=== PATIENT | female | born 1985 | race Caucasian/White ===

== ENCOUNTER 2022-12-02 15:47 | Emergency (ER) | payer OTHER, SELFPAY ==
[2022-12-02 16:42] LABS: Absolute Lymphocytes (CBC) 0.4 K/uL (0.7-4.9); Hematocrit 41.6 % (36.0-45.0); Lymphocytes % 4.9 % (15.3-44.8); MCV 90.9 fL (80-100); MPV 8.6 fL (7.6-11.3); RBC Red Blood Cell Count 4.57 M/uL (3.86-4.86)
[2022-12-02 16:45] LABS: Specific Gravity > 1.030 (1.005-1.030)
[2022-12-02 16:52] LABS: Specific Gravity > 1.030 (1.005-1.030); Urine Bacteria 20-50 /HPF (<20); Urine Bilirubin NEGATIVE (Negative); Urine Blood Negative (Negative); Urine Clarity Extremely Turbid (Clear); Urine Color Yellow (Yellow); Urine Glucose NEGATIVE (Negative); Urine Mucus 2+ /HPF (None Seen); Urine Protein 1+ (Negative); Urine Urobilinogen Normal (Normal); Urine pH 5.5 (5.0-7.0)
[2022-12-02] MEDS ORDERED: NA CHLORIDE 0.9% 1,000 ML ONE (16:55)
[2022-12-02] MEDS ORDERED: DICYCLOMINE HCL 20 MG/2 ML AMP IM ONE (16:55)
[2022-12-02] MEDS ORDERED: ONDANSETRON 4 MG/2 ML VIAL ONE (16:55)
[2022-12-02] MEDS ORDERED: FAMOTIDINE 20 MG/2 ML VIAL IV ONE (16:55)
[2022-12-02 16:59] LABS: Albumin 3.7 g/dL (3.4-5.0); Bilirubin Total 0.8 mg/dL (0.2-1.0); Potassium 3.7 mEq/L (3.5-5.1); Protein, Total 7.1 g/dL (6.4-8.2)
[2022-12-02] MEDS ORDERED: CEFTRIAXONE 1000 MG/VIAL ONE (17:38)
[2022-12-02] MEDS ORDERED: MORPHINE 4 MG/ML SYR ONE (17:38)
--- NOTE | 2022-12-02 18:16 | RAD REPORT ---
EXAM DESCRIPTION: CT - Abdomen Pelvis W Contrast - 12/02/2022 5:20 pm CLINICAL HISTORY: ABD PAIN COMPARISON: No comparisons TECHNIQUE: Thin cut axial CT imaging of the abdomen and pelvis was performed following intravenous a dministration of 95 mL Isovue 300. Multiplanar reformats were generated and reviewed. All CT scans are performed using dose optimization technique as appropriate and may include automated exposure control or mA/KV adjustment according to patient size. FINDINGS: No suspicious findings in the lung bases. Multiple fluid density lobulated lesions throughout the liver, the largest is bilobed present within the peripheral left liver lobe measuring 2.8 centimeter. The adrenal glands, spleen, and pancreas leatha w no suspicious findings. Cholesterol containing gallstone near the gallbladder neck. Symmetric renal function is seen with no hydronephrosis or suspicious renal mass. No dilated bowel loops or bowel wall thickening. No free air, or inflammatory stranding. Trace free f luid along bowel loops in the anterior right lower quadrant, nonspecific. No hernia, mass or bulky ly mphadenopathy. The urinary bladder is decompressed limiting evaluation No suspicious bony findings. IMPRESSION: Trace free fluid along bowel loops in the anterior right lower quadrant. This could rela te to mild enteritis or a recently ruptured right adnexal cyst/ follicle. The No other acute intra-abdominal process. Incidental findings as above.
--- NOTE | 2022-12-02 18:52 | ER ---
Nurse's Notes [facility] Name: Brielle Finley Age: 37 yrs Sex: Female : 1985 Arrival Date: 12/02/2022 Time: 15:47 Bed 13 Private MD: Diagnosis: Nausea with vomiting, unspecified;Diarrhea, unspecified;UTI/ Urinary tract infection, site not specified Presentation: 12/02 15:56 Chief complaint: Patient states: ABD and back pain that began this morning. States body vg1 aches and sweats and nausea. Coronavirus screen: Vaccine status: Patient reports being unvaccinated. Client denies travel out of the [place] in the last 14 days. Ebola Screen: Patient negative for fever greater than or equal to 101.5 degrees Fahrenheit, and additional compatible Ebola Virus Disease symptoms Patient denies exposure to infectious person. Patient denies travel to an Ebola-affected area in the 21 days before illness onset. Initial Sepsis Screen: Does the patient meet any 2 criteria? HR > 90 bpm. Does the patient have a suspected source of infection? No. Patient's initial sepsis screen is negative. Risk Assessment: Do you want to hurt yourself or someone else? Patient reports no desire to harm self or others. Onset of symptoms was December 02, 2022. 15:56 Method Of Arrival: Ambulatory vg1 15:56 Acuity: NATHALY 3 vg1 Triage Assessment: 15:58 General: Appears in no apparent distress. uncomfortable, Behavior is cooperative. Pain: vg1 Complains of pain in back and abdomen Pain currently is 7 out of 10 on a pain scale. Pain began this morning around 0800. GI: Reports diarrhea, nausea, vomiting. : No signs and/or symptoms were reported regarding the genitourinary system. 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 - Social history:: Smoking status: Patient denies any tobacco usage or history of. Screenin:[address] [facility] ED Fall Risk Assessment (Adult) History of falling in the last 3 months, sg5 including since admission No falls in past 3 months (0 pts). Abuse screen: Denies threats or abuse. Nutritional screening: No deficits noted. Tuberculosis screening: No symptoms or risk factors identified. Assessment: 16:31 General: Appears uncomfortable, Behavior is calm, cooperative, appropriate for age. sg5 Pain: Complains of pain in abdomen and back. Neuro: Level of Consciousness is awake, alert, obeys commands, Oriented to person, place, time, situation, Appropriate for age. Cardiovascular: Capillary refill < 3 seconds Patient's skin is warm and dry. Respiratory: Airway is patent Respiratory effort is even, unlabored. GI: Bowel sounds present X 4 quads. Abd is soft. : No signs and/or symptoms were reported regarding the genitourinary system. EENT: No signs and/or symptoms were reported regarding the EENT system. Derm: No signs and/or symptoms reported regarding the dermatologic system. Musculoskeletal: No signs and/or symptoms reported regarding the musculoskeletal system. Vital Signs: 15:56 BP 130 / 95; Pulse 100; Resp 16; Temp 98.5(O); Pulse Ox 100% on R/A; Weight 87.09 kg; vg1 Height 5 ft. 8 in. ; Pain 7/10; 17:25 BP 138 / 97; Pulse 80; Resp 18; Pulse Ox 100% on R/A; Pain 8/10; sg5 17:38 BP 126 / 83; Pulse 78; Resp 16; Pulse Ox 100% on R/A; Pain 3/10; sg5 18:22 BP 128 / 88; Pulse 79; Resp 16; Pulse Ox 100% on R/A; sg5 15:56 Body Mass Index 29.19 (87.09 kg, 172.72 cm) vg1 15:56 Pain Scale: Adult vg1 17:25 Pain Scale: Adult sg5 17:38 Pain Scale: Adult sg5 ED Course: 15:49 Patient arrived in ED. ts1 15:50 Sincere Lomax PA is PHCP. cp 15:50 Mingo Ballard MD is Attending Physician. cp 15:58 Triage completed. vg1 15:58 Arm band placed on. vg1 16:20 Tawana Blancas, RN is Primary Nurse. sg5 16:31 Patient has correct armband on for positive identification. Bed in low position. Call sg5 light in reach. Side rails up X 1. Adult w/ patient. Valuables Left with patient. 16:31 Inserted saline lock: 20 gauge in left antecubital area, using aseptic technique. Blood sg5 collected. 16:32 Test, Urine Sent. mm9 16:32 Urinalysis w/ reflexes Sent. mm9 16:32 Urine collected: clean catch specimen, cloudy. mm9 16:33 Warm blanket given. Client placed on continuous cardiac and pulse oximetry monitoring. mm9 NIBP monitoring applied. labor standards director on. Pulse ox on. NIBP on. 17:21 CT Abd/Pelvis - IV Contrast Only In Process Unspecified. EDMS 19:25 No provider procedures requiring assistance completed. IV discontinued, intact, vc1 bleeding controlled, No redness/swelling at site. Pressure dressing applied. Administered Medications: 16:55 Drug: NS 0.9% IV 1000 ml Route: IV; Rate: 1 bolus; Site: left antecubital; sg5 16:55 Drug: Famotidine IVP 20 mg Route: IVP; Site: left antecubital; sg5 16:55 Drug: Ondansetron IVP 4 mg Route: IVP; Site: left antecubital; sg5 16:56 Drug: Dicyclomine IM 20 mg Route: IM; Site: right gluteus; sg5 17:38 Drug: Rocephin IV 1 grams Route: IV; Rate: calculated rate; Site: left antecubital; sg5 17:38 Drug: morphine IVP or IV 4 mg Route: IVP; Infused Over: 4 mins; Site: left antecubital; sg5 Medication: 19:26 VIS not applicable for this client. vc1 Outcome: 18:51 Discharge ordered by MD. cp 19:25 Discharged to home via wheelchair, with significant other. vc1 19:25 Condition: good 19:25 Discharge instructions given to patient, Instructed on discharge instructions, follow up and referral plans. medication usage, Demonstrated understanding of instructions, follow-up care, medications, Prescriptions given X 3. 19:26 Patient left the ED. vc1 Signatures: Dispatcher [employer] EDKY Sincere Lomax PA PA cp Garcia, Victoria, RN RN vg1 Roxane Ramirez, RN RN vc1 Marlene Sanchez mm9 Tawana Blancas, RN RN sg5 Georgia Hancock, GIA PAS ts1
--- NOTE | 2022-12-02 18:52 | EDPHYS ---
Physician Documentation [facility] Name: Brielle Finley Age: 37 yrs Sex: Female : 1985 Arrival Date: 12/02/2022 Time: 15:47 Bed 13 Private MD: ED Physician Mingo Ballard HPI: 12/02 16:25 This 37 yrs old Female presents to ER via Ambulatory with complaints of Abdominal Pain, cp Back Pain. 16:25 The patient presents with abdominal pain in the lower abdomen. Onset: The cp symptoms/episode began/occurred this morning. Associated signs and symptoms: Pertinent positives: nausea and vomiting, diarrhea, mid and lower back pain, Pertinent negatives: fever. 16:25 Severity of pain: in the emergency department the pain is unchanged despite home cp interventions. 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 - Social history:: Smoking status: Patient denies any tobacco usage or history of. ROS: 16:30 Constitutional: Negative for body aches, chills, fever. cp 16:30 Abdomen/GI: Positive for abdominal pain, nausea and vomiting, diarrhea. cp 16:30 Eyes: Negative for injury, pain, redness, and discharge. cp 16:30 ENT: Negative for drainage from ear(s), ear pain, sore throat, difficulty swallowing, difficulty handling secretions. 16:30 Cardiovascular: Negative for chest pain. 16:30 Respiratory: Negative for cough, shortness of breath, wheezing. 16:30 Back: Positive for pain at rest, pain with movement. 16:30 Neuro: Negative for altered mental status, headache. 16:30 : Positive for burning with urination. cp 16:30 All other systems are negative. Exam: 16:35 Constitutional: The patient appears in no acute distress, alert, awake, non-toxic, well cp developed, well nourished, uncomfortable. 16:35 Head/Face: Normocephalic, atraumatic. cp 16:35 Eyes: Periorbital structures: appear normal, Conjunctiva: normal, no exudate, no injection, Sclera: no appreciated abnormality, Lids and lashes: appear normal, bilaterally. 16:35 ENT: External ear(s): are unremarkable, Nose: is normal, Mouth: Lips: moist, Oral mucosa: pink and intact, moist, Posterior pharynx: is normal, airway is patent, no erythema, no exudate. 16:35 Neck: ROM/movement: is normal, is supple, without pain, no range of motions limitations, no meningismus. 16:35 Chest/axilla: Inspection: normal. 16:35 Cardiovascular: Rate: tachycardic, Rhythm: regular. 16:35 Respiratory: the patient does not display signs of respiratory distress, Respirations: normal, no use of accessory muscles, no retractions, labored breathing, is not present, Breath sounds: are clear throughout, no decreased breath sounds, no stridor, no wheezing. 16:35 Abdomen/GI: Inspection: abdomen appears normal, Bowel sounds: active, all quadrants, Palpation: soft, in all quadrants, moderate abdominal tenderness, in all quadrants, rebound tenderness, is not appreciated, involuntary guarding, is not appreciated. 16:35 Back: pain, that is moderate, of the low back area and mid back area. 16:35 Neuro: Orientation: to person, place \T\ time. Mentation: is normal, Motor: moves all fours, strength is normal. Vital Signs: 15:56 BP 130 / 95; Pulse 100; Resp 16; Temp 98.5(O); Pulse Ox 100% on R/A; Weight 87.09 kg; vg1 Height 5 ft. 8 in. ; Pain 7/10; 17:25 BP 138 / 97; Pulse 80; Resp 18; Pulse Ox 100% on R/A; Pain 8/10; sg5 17:38 BP 126 / 83; Pulse 78; Resp 16; Pulse Ox 100% on R/A; Pain 3/10; sg5 18:22 BP 128 / 88; Pulse 79; Resp 16; Pulse Ox 100% on R/A; sg5 15:56 Body Mass Index 29.19 (87.09 kg, 172.72 cm) vg1 15:56 Pain Scale: Adult vg1 17:25 Pain Scale: Adult sg5 17:38 Pain Scale: Adult sg5 MDM: 16:03 Patient medically screened. 16:30 Differential diagnosis: appendicitis, cholecystitis, Cholelithiasis, gastritis, cp Pyelonephritis, Ureterolithiasis, urinary tract infection. 18:50 Data reviewed: vital signs, nurses notes, lab test result(s), radiologic studies, CT cp scan. 18:50 I considered the following discharge prescriptions or medication management in the emergency department Medications were administered in the Emergency Department. See MAR. Counseling: I had a detailed discussion with the patient and/or guardian regarding: the historical points, exam findings, and any diagnostic results supporting the discharge/admit diagnosis, lab results, radiology results, to return to the emergency department if symptoms worsen or persist or if there are any questions or concerns that arise at home. Response to treatment: the patient's symptoms have markedly improved after treatment, and as a result, I will discharge patient. Special discussion: Based on the patient's Hx, exam, and Dx evaluation, there is no indication for emergent surgery or inpatient Tx. It is understood by the patient/guardian that if the Sx's persist or worsen they need to return immediately for re-evaluation. 12/02 16:22 Order name: CBC with Diff; Complete Time: 17:04 12/02 17:05 Interpretation: Normal except: PAULINA% 90.2; LYM% 4.9; LYMA 0.4. 12/02 16:22 Order name: CMP; Complete Time: 17:04 12/02 16:22 Order name: Lipase; Complete Time: 17:04 12/02 16:22 Order name: Test, Urine; Complete Time: 17:04 18 16:22 Order name: Urinalysis w/ reflexes; Complete Time: 17:04 18 17:25 Interpretation: Normal except: [facility] Extremely Turbid; Urine SG > 1.030; UPROT 1+; UESTR cp 500; URBC 5-10; UBACT 20-50. 18 16:22 Order name: CT Abd/Pelvis - IV Contrast Only; Complete Time: 18:21 18 18:23 Interpretation: Report reviewed. 12/02 16:22 Order name: IV Saline Lock; Complete Time: 17:01 12/02 16:22 Order name: Labs collected and sent; Complete Time: 17:01 cp 12/02 18:23 Order name: PO challenge; Complete Time: 19:02 cp Administered Medications: 16:55 Drug: NS 0.9% IV 1000 ml Route: IV; Rate: 1 bolus; Site: left antecubital; sg5 16:55 Drug: Famotidine IVP 20 mg Route: IVP; Site: left antecubital; sg5 16:55 Drug: Ondansetron IVP 4 mg Route: IVP; Site: left antecubital; sg5 16:56 Drug: Dicyclomine IM 20 mg Route: IM; Site: right gluteus; sg5 17:38 Drug: Rocephin IV 1 grams Route: IV; Rate: calculated rate; Site: left antecubital; sg5 17:38 Drug: morphine IVP or IV 4 mg Route: IVP; Infused Over: 4 mins; Site: left antecubital; sg5 Disposition Summary: 12/02/22 18:51 Discharge Ordered Location: Home cp Problem: new cp Symptoms: have improved cp Condition: Stable cp Diagnosis - Nausea with vomiting, unspecified cp - Diarrhea, unspecified cp - UTI/ Urinary tract infection, site not specified cp Followup: cp - With: Private Physician - When: 2 - 3 days - Reason: Recheck today's complaints Discharge Instructions: - Discharge Summary Sheet cp - Diarrhea, Adult cp - Urinary Tract Infection, Adult cp - Vomiting, Adult cp Forms: - Medication Reconciliation Form cp - Thank You Letter cp - Antibiotic Education cp - Prescription Opioid Use cp Prescriptions: - Zofran 4 mg Oral Tablet - take 1 tablet by ORAL route every 12 hours As needed; 20 tablet; Refills: 0, cp Product Selection Permitted - cefpodoxime 100 mg Oral Tablet - take 1 tablet by ORAL route every 12 hours for 7 days take with food; 14 cp tablet; Refills: 0, Product Selection Permitted - dicyclomine 20 mg Oral Tablet - take 1 tablet by ORAL route 4 times per day; 20 tablet; Refills: 0, Product cp Selection Permitted Signatures: Dispatcher [employer] EDMS Sincere Lomax PA PA cp Garcia, Victoria RN RN vg1 Tawana Blancas RN RN sg5
[2022-12-02 19:39] VITALS: TEMP 98.5; O2SAT 100
[2022-12-02 19:45] VITALS: BP 128/88
== END 2022-12-02 19:26 | disposition home or self-care (01) ==
LOC: ER 15:47
DX: N39.0 Urinary tract infection, site not specified (principal); R19.7 Diarrhea, unspecified
CPT/HCPCS: 36415; 74177; 80053; 81001; 81025; 83690; 85025; 96372; 96374; 96375; 99285; J0500; J0696; J2405; J7030; Q9967

== ENCOUNTER 2023-04-11 16:00 | Observation (INO) | payer BC ==
--- OUTSIDE RECORDS SUMMARY | 2023-04-11 16:17 | XMS REPORT | Continuity of Care Document ---
:1985 Author Organization [facility] t Address [address] [place] [address] Care Team Providers Name Role Phone ELIZA LITTLE Primary Care Physician Unavailable Radiology Attending Clinician Unavailable RADIOLOGY Attending Clinician Unavailable Doctor Unassigned, [place] Attending Clinician Unavailable ELIZA LITTLE Admitting Clinician Unavailable Payers Payer Name Policy Type Policy Number Effective Date Expiration Date S ource Problems This patient has no known problems. Allergies, Adverse Reactions, Alerts Allergy Allergy Status Severity Reaction(s) Onset Inactive Treating Comm ents Source Name Type Date Date Clinician NO KNOWN Drug Active Univers ALLERGIE Class ity [facility] Social History Social Habit Start Date Stop Date Quantity Comments Source Gender identity [facility] Sexual orientation [facility] Sex Assigned At [birth year] [facility] 00:00:00 00:00:00 Medical Branch Smoking Status Start Date Stop Date Source Tobacco smoking consumption [facility] Medications This patient has no known medications. Procedures Procedure Date / Time Performing Clinician Source Performed US ABDOMEN LIMITED 2023-01-03 21:15:32 Eliza Little [facility] AUTHORIZATION FOR 2020-10-12 05:01:00 Doctor Unassigned, No [facility] RELEASE OF PHI Name Medical Branch Encounters Start End Encounter Admission Attending Care Care Encounter Source Date/Time Date/Time Type Type Clinicians Facility Department ID 2023-01-03 2023-01-03 Hospital Radiology [facility] [id number] Univers 15:30:00 23:59:00 Encounter SPECIALTY [id number] ity of [facility] [id number] [facility] AT [id number] Ut prabhakar GUTIERREZ [address] [facility] 2023-01-03 2023-01-03 Outpatient R RADIOLOGY [facility] [id number] Univers 15:30:00 23:59:00 ity of [facility] 2020-10-12 2020-10-12 Orders Doctor KEVIN [id number] Univers 00:00:00 00:00:00 Only Unassigned, PAPITO [id number] ity of [place] [facility] [id number] [facility] [phone] [place] [id number] Branch Results This patient has no known results.
[2023-04-11] MEDS ORDERED: ASPIRIN 81 MG CHEWABLE TABLET ONE (16:50)
[2023-04-11] MEDS ORDERED: NA CHLORIDE 0.9% 500 ML ONE (16:50)
--- NOTE | 2023-04-11 17:03 | RAD REPORT ---
EXAM DESCRIPTION: Rena Single View04/11/2023 4:30 pm CLINICAL HISTORY: Chest pain COMPARISON: April 09, 2023 FINDINGS: The lungs appear clear of acute infiltrate. The heart is normal size IMPRESSION: No acute abnormalities displayed
[2023-04-11 17:06] LABS: Absolute Lymphocytes (CBC) 2.2 K/uL (0.7-4.9); Hematocrit 37.3 % (36.0-45.0); Lymphocytes % 34.1 % (15.3-44.8); MCV 90.8 fL (80-100); MPV 8.8 fL (7.6-11.3); Platelets 204 thou/uL (152-406)
[2023-04-11 17:10] LABS: Protime INR 0.95
--- NOTE | 2023-04-11 17:24 | ER ---
Nurse's Notes [facility] Name: Brielle Finley Age: 37 yrs Sex: Female : 1985 Arrival Date: 04/11/2023 Time: 16:00 Bed 13 Private MD: Diagnosis: Chest pain, unspecified;Essential (primary) hypertension;Palpitations;Dyspnea;UTI/ Urinary tract infection, site not specified Presentation: 04/11 16:06 Chief complaint: Patient states: Mid-sternal sharp chest pain, worse w/ deep breathing ph or cough, tingling to L arm and "kidney pain," Chest pain worse w/ palpation, has seen PCP who sent her for [facility] x[facility], no results currently. Coronavirus screen: Vaccine status: Patient reports being unvaccinated. Ebola Screen: No symptoms or risks identified at this time. Initial Sepsis Screen: Does the patient meet any 2 criteria? No. Patient's initial sepsis screen is negative. Does the patient have a suspected source of infection? No. Patient's initial sepsis screen is negative. Risk Assessment: Do you want to hurt yourself or someone else? Patient reports no desire to harm self or others. Onset of symptoms was April 11, 2023. 16:06 Method Of Arrival: Ambulatory ph 16:06 Acuity: NATHALY 3 ph Historical: - Home Meds: 16:10 Ambien Oral [Active]; Vyvanse oral [Active]; ph - PMHx: 16:10 ADD; ph - PSHx: 16:10 breast augmentation; section; Tummy tuck; ph - Immunization history:: Adult Immunizations unknown. - Social history:: Smoking status: Patient denies any tobacco usage or history of. Screenin:00 [facility] ED Fall Risk Assessment (Adult) History of falling in the last 3 months, ha1 including since admission No falls in past 3 months (0 pts) Confusion or Disorientation No (0 pts) Intoxicated or Sedated No (0 pts) Impaired Gait No (0 pts) Mobility Assist Device Used No (0 pt) Altered Elimination No (0 pt) Score/Fall Risk Level 0 - 2 = Low Risk Oriented to surroundings, Maintained a safe environment, Educated pt \\T\\ family on fall prevention, incl call for assistance when getting out of bed. Abuse screen: Denies threats or abuse. Denies injuries from another. Nutritional screening: No deficits noted. Tuberculosis screening: No symptoms or risk factors identified. Assessment: 19:25 General: Appears comfortable, Behavior is calm, cooperative. Pain: Denies pain. Neuro: ha1 Level of Consciousness is awake, alert, obeys commands, Oriented to person, place, time, situation. Cardiovascular: Reports palpitations, Denies chest pain, Heart tones S1 S2 present Capillary refill < 3 seconds Patient's skin is warm and dry. Respiratory: Airway is patent Respiratory effort is even, unlabored, Respiratory pattern is regular, symmetrical. 20:25 Reassessment: Patient and/or family updated on plan of care and expected duration. Pain ha1 level reassessed. Patient is alert, oriented x 3, equal unlabored respirations, skin warm/dry/pink. 21:25 Reassessment: Patient and/or family updated on plan of care and expected duration. Pain ha1 level reassessed. Patient is alert, oriented x 3, equal unlabored respirations, skin warm/dry/pink. Vital Signs: 16:06 Pulse 77; Resp 16; Temp 98.2; Pulse Ox 98% on R/A; Weight 83.91 kg; Height 5 ft. 8 in. ;ph 16:11 BP 140 / 107; ph 19:30 BP 142 / 102; Pulse 74; Resp 18 S; Pulse Ox 99% on R/A; ha1 20:30 BP 140 / 101; Pulse 70; Resp 17 S; Pulse Ox 99% on R/A; ha1 23:00 BP 119 / 88; Pulse 78; Resp 17 S; Pulse Ox 98% on R/A; ha1 16:06 Body Mass Index 28.13 (83.91 kg, 172.72 cm) ph ED Course: 16:01 Patient arrived in ED. rg4 16:09 Sincere Johnson MD is Attending Physician. tatiana 16:10 Triage completed. ph 16:11 Arm band placed on. EKG completed in triage. Results shown to . ph 16:30 Dinora Angulo, MARY CARMEN is Primary Nurse. eh3 16:32 XRAY Chest (1 view) In Process Unspecified. EDMS 17:23 Jonatan Farah MD is Hospitalizing Provider. tatiana 17:59 CT Aorta for Dissection In Process Unspecified. EDMS 19:00 Patient has correct armband on for positive identification. Placed in gown. Bed in low ha1 position. Call light in reach. Side rails up X 1. 19:00 Client placed on continuous cardiac and pulse oximetry monitoring. NIBP monitoring ha1 applied. 19:00 Inserted saline lock: 22 gauge in left antecubital area, using aseptic technique. ha1 inserted by MARY CARMEN Farias. 20:30 Inserted saline lock: 22 gauge in left hand, using aseptic technique. ha1 04/12 00:10 No provider procedures requiring assistance completed. Patient admitted, IV remains in ha1 place. Patient maintains SpO2 saturation greater than 95% on room air. 00:11 Provided Education on: need for admit . ha1 Administered Medications: 04/11 16:35 Drug: Aspirin PO Chewable Tablet 162 mg PO once Route: PO; 3 17:30 Follow up: Response: No adverse reaction 3 16:45 Drug: NS 0.9% IV 500 ml IV at bolus once Route: IV; Rate: bolus; Site: left antecubital;3 18:25 Drug: Lisinopril PO 10 mg PO once Route: PO; 3 18:25 Drug: Metoprolol IVP 5 mg IVP once; Hold for SBP <100 or HR <60. Route: IVP; Site: left eh3 antecubital; 18:25 Drug: Metoprolol PO 50 mg PO once Route: PO; 3 18:25 Drug: Enoxaparin Sub-Q 1 mg/kg Sub-Q once Route: Sub-Q; Site: abdomen; 3 19:28 Follow up: Response: No adverse reaction [facility] 20:00 Drug: Rocephin IV 1 grams IV at per protocol once; Given slow IV push per pharmacy ha1 instructions Route: IV; Rate: per protocol; Site: left antecubital; 20:30 Follow up: Response: No adverse reaction; IV Status: Completed infusion; IV Intake: [id number] Medication: 21:35 VIS not applicable for this client. ha1 Intake: 20:30 IV: 50ml; Total: 50ml. ha1 Outcome: 17:23 Decision to Hospitalize by Provider. tatiana 23:45 Admitted to Med/surg accompanied by tech, via stretcher, room 220, with chart, Report ha1 called to MARY CARMEN Gilliam 23:45 Condition: stable 23:45 Discharge instructions given to patient, Instructed on the need for admit, Demonstrated understanding of instructions, 04/12 00:12 Patient left the ED. ha1 Signatures: Dispatcher [employer] EDSincere Vizcaino MD MD cha Hall, Patricia, RN RN Tushar, Soha 4 Dinora Angulo RN RN 3 Martha Rosen RN RN 1 Corrections: (The following items were deleted from the chart) 04/11 18:37 18:00 Enoxaparin Sub-Q 83.91 mg Sub-Q in abdomen 3 3
--- NOTE | 2023-04-11 17:24 | EDPHYS ---
Physician Documentation [facility] Name: Brielle Finley Age: 37 yrs Sex: Female : 1985 Arrival Date: 04/11/2023 Time: 16:00 Bed 13 Private MD: ED Physician Sincere Johnson HPI: 04/11 17:15 This 37 yrs old Female presents to ER via Ambulatory with complaints of Chest tatiana Pain, Numbness Of Arm, Palpitations. 17:15 The patient or guardian reports chest pain that is located primarily in the substernal tatiana area. The pain radiates to the left arm, Associated signs and symptoms: Pertinent positives: cough, shortness of breath. Historical: - Home Meds: 16:10 Ambien Oral [Active]; Vyvanse oral [Active]; ph - PMHx: 16:10 ADD; ph - PSHx: 16:10 breast augmentation; section; Tummy tuck; ph - Immunization history:: Adult Immunizations unknown. - Social history:: Smoking status: Patient denies any tobacco usage or history of. ROS: 17:17 Constitutional: Negative for fever, chills, and weight loss, Eyes: Negative for injury, tatiana pain, redness, and discharge, ENT: Negative for injury, pain, and discharge, Neck: Negative for injury, pain, and swelling, Abdomen/GI: Negative for abdominal pain, nausea, vomiting, diarrhea, and constipation, Back: Negative for injury and pain, : Negative for injury, bleeding, discharge, and swelling, MS/Extremity: Negative for injury and deformity, Skin: Negative for injury, rash, and discoloration, Neuro: Negative for headache, weakness, numbness, tingling, and seizure, Psych: Negative for depression, anxiety, suicide ideation, homicidal ideation, and hallucinations, Allergy/Immunology: Negative for hives, rash, and allergies, Endocrine: Negative for neck swelling, polydipsia, polyuria, polyphagia, and marked weight changes, 17:17 Cardiovascular: Positive for chest pain, of the chest, 17:17 Respiratory: Positive for shortness of breath, Exam: 17:17 Constitutional: This is a well developed, well nourished patient who is awake, alert, tatiana and in no acute distress. Head/Face: Normocephalic, atraumatic. Eyes: Pupils equal round and reactive to light, extra-ocular motions intact. Lids and lashes normal. Conjunctiva and sclera are non-icteric and not injected. Cornea within normal limits. Periorbital areas with no swelling, redness, or edema. ENT: Nares patent. No nasal discharge, no septal abnormalities noted. Tympanic membranes are normal and external auditory canals are clear. Oropharynx with no redness, swelling, or masses, exudates, or evidence of obstruction, uvula midline. Mucous membranes moist. Neck: Trachea midline, no thyromegaly or masses palpated, and no cervical lymphadenopathy. Supple, full range of motion without nuchal rigidity, or vertebral point tenderness. No Meningismus. Cardiovascular: Regular rate and rhythm with a normal S1 and S2. No gallops, murmurs, or rubs. Normal PMI, no JVD. No pulse deficits. Respiratory: Lungs have equal breath sounds bilaterally, clear to auscultation and percussion. No rales, rhonchi or wheezes noted. No increased work of breathing, no retractions or nasal flaring. Abdomen/GI: Soft, non-tender, with normal bowel sounds. No distension or tympany. No guarding or rebound. No evidence of tenderness throughout. Back: No spinal tenderness. No costovertebral tenderness. Full range of motion. Female : Normal external genitalia. Skin: Warm, dry with normal turgor. Normal color with no rashes, no lesions, and no evidence of cellulitis. MS/ Extremity: Pulses equal, no cyanosis. Neurovascular intact. Full, normal range of motion. Neuro: Awake and alert, GCS 15, oriented to person, place, time, and situation. Cranial nerves II-XII grossly intact. Motor strength 5/5 in all extremities. Sensory grossly intact. Cerebellar exam normal. Normal gait. Psych: Awake, alert, with orientation to person, place and time. Behavior, mood, and affect are within normal limits. 17:17 Chest/axilla: Inspection: normal, Palpation: tenderness, that is mild, of the right clavicle, left clavicle, anterior aspect of right upper chest, anterior aspect of left upper chest and mid-sternal area, Axilla: are normal, Breasts: are normal, symmetrical shape, 17:17 Cardiovascular: Rate: normal, actual rate is 77 bpm, Rhythm: regular, Pulses: Pulses are 4+ in bilateral radial, brachial, femoral, popliteal, posterior tibial and and dorsalis pedis arteries.. Heart sounds: normal, Edema: is not appreciated, JVD: is not appreciated, 17:17 ECG was reviewed by the Attending Physician. 17:17 Musculoskeletal/extremity: DVT Exam: No signs of deep vein thrombosis. no pain, no swelling, no tenderness, negative Homans' sign noted on exam, no appreciated bluish discoloration, no erythema, no increased warmth, Vital Signs: 16:06 Pulse 77; Resp 16; Temp 98.2; Pulse Ox 98% on R/A; Weight 83.91 kg; Height 5 ft. 8 in. ;ph 16:11 BP 140 / 107; ph 19:30 BP 142 / 102; Pulse 74; Resp 18 S; Pulse Ox 99% on R/A; ha1 20:30 BP 140 / 101; Pulse 70; Resp 17 S; Pulse Ox 99% on R/A; ha1 23:00 BP 119 / 88; Pulse 78; Resp 17 S; Pulse Ox 98% on R/A; ha1 16:06 Body Mass Index 28.13 (83.91 kg, 172.72 cm) ph MDM: 16:09 Patient medically screened. tatiana 17:20 Differential diagnosis: abnormal EKG, acute myocardial infarction, acute pericarditis, tatiana anxiety, coronary artery disease chest wall pain, Cholelithiasis costochondritis, herpes zoster, hiatal hernia, pancreatitis, peptic ulcer disease, pericarditis, pulmonary embolus, stable angina, thoracic aortic disection, unstable angina. HEART Score: History: Moderately Suspicious (1), ECG: Non specific repolarization disturbance / LBTB / PM (1), Age: < or = 45 years (0), Risk Factors: 1 or 2 risk factors (1), [+ Family HX] [Obesity] Troponin: < or = 1 x Normal Limit (0). ANDRE Risk Score: TOTAL SCORE = 0. Data reviewed: vital signs, nurses notes, lab test result(s), EKG, radiologic studies, CT scan, plain films. Consideration of Admission/Observation Patient was admitted/placed on observation. Escalation of care including admission/observation considered. I considered the following discharge prescriptions or medication management in the emergency department Medications were administered in the Emergency Department. See MAR. Independent interpretation of the following test(s) in the Emergency Department EKG: See my EKG interpretation above. Test considered but Not performed: EKG: NO ABD USG. Historians other than the Patient: Family Member: MOM. Care significantly affected by the following chronic conditions: Obesity, ADD,ADHD. 04/11 16:10 Order name: Basic Metabolic Panel; Complete Time: 18:02 [facility] 04/11 16:10 Order name: CBC with Diff; Complete Time: 17:22 04/11 16:10 Order name: LFT's; Complete Time: 18:02 [facility] 04/11 16:10 Order name: Magnesium; Complete Time: 18:02 [facility] 04/11 16:10 Order name: NT PRO-BNP; Complete Time: 18:02 [facility] 04/11 16:10 Order name: PT-INR; Complete Time: 17:22 04/11 16:10 Order name: Troponin HS; Complete Time: 18:02 [facility] 04/11 16:10 Order name: Lipase; Complete Time: 18:02 [facility] 04/11 16:10 Order name: TSH; Complete Time: 18:02 [facility] 04/11 16:10 Order name: Urinalysis w/ reflexes; Complete Time: 19:21 [facility] 04/11 16:10 Order name: PREGU; Complete Time: 19:21 [facility] 04/11 16:11 Order name: UDS; Complete Time: 19:21 [facility] 04/11 17:16 Order name: Flu [facility] 04/11 19:23 Order name: Urine Culture [facility] 04/11 19:54 Order name: Lipid Profile [facility] 04/11 19:54 Order name: Lipid Profile [facility] 04/11 19:55 Order name: Troponin High Sensitivity [facility] 04/11 19:55 Order name: Troponin High Sensitivity [facility] 04/11 19:55 Order name: Troponin High Sensitivity [facility] 04/11 19:55 Order name: Troponin High Sensitivity [facility] 04/11 20:11 Order name: SARS-COV-2 RT PCR [facility] 04/11 16:10 Order name: XRAY Chest (1 view); Complete Time: 17:08 04/11 17:15 Order name: CT Aorta for Dissection; Complete Time: 19:21 04/11 16:10 Order name: EKG; Complete Time: 16:11 04/11 16:10 Order name: Cardiac monitoring; Complete Time: 16:52 04/11 16:10 Order name: EKG - Nurse/Tech; Complete Time: 16:52 [facility] 04/11 16:10 Order name: IV Saline Lock; Complete Time: 16:52 [facility] 04/11 16:10 Order name: Labs collected and sent; Complete Time: 16:53 [facility] 04/11 16:10 Order name: O2 Per Protocol; Complete Time: 16:53 [facility] 04/11 16:10 Order name: O2 Sat Monitoring; Complete Time: 16:53 [facility] EC:17 Rate is 83 beats/min. Rhythm is regular. QRS [place] is Normal. [place] interval is normal. QRS tatiana interval is normal. QT interval is normal. No Q waves. T waves are Normal. No ST changes noted. Clinical impression: NSR w/ Non-specific ST/T Changes and No evidence of ischemia. Interpreted by me. Reviewed by me. Administered Medications: 16:35 Drug: Aspirin PO Chewable Tablet 162 mg PO once Route: PO; 3 17:30 Follow up: Response: No adverse reaction 3 16:45 Drug: NS 0.9% IV 500 ml IV at bolus once Route: IV; Rate: bolus; Site: left antecubital;3 18:25 Drug: Lisinopril PO 10 mg PO once Route: PO; 3 18:25 Drug: Metoprolol IVP 5 mg IVP once; Hold for SBP <100 or HR <60. Route: IVP; Site: left 3 antecubital; 18:25 Drug: Metoprolol PO 50 mg PO once Route: PO; 3 18:25 Drug: Enoxaparin Sub-Q 1 mg/kg Sub-Q once Route: Sub-Q; Site: abdomen; 3 19:28 Follow up: Response: No adverse reaction 3 20:00 Drug: Rocephin IV 1 grams IV at per protocol once; Given slow IV push per pharmacy ha1 instructions Route: IV; Rate: per protocol; Site: left antecubital; 20:30 Follow up: Response: No adverse reaction; IV Status: Completed infusion; IV Intake: [id number] Disposition Summary: 04/11/23 17:23 Hospitalization Ordered Notes: Hospitalization Status: Observation tatiana Provider: Jonatan Farah cha Condition: Stable tatiana Problem: new tatiana Symptoms: have improved tatiana Bed/Room Type: Standard tatiana Location: Telemetry/MedSurg (observation)(04/11/23 23:13) cg Room Assignment: 220(04/11/23 23:13) cg Diagnosis - Chest pain, unspecified tatiana - Essential (primary) hypertension tatiana - Palpitations tatiana - Dyspnea tatiana - UTI/ Urinary tract infection, site not specified tatiana Forms: - Medication Reconciliation Form tatiana - SBAR form tatiana - Leadership Thank You Letter tatiana Signatures: Dispatcher [employer] EDSincere Vizcaino MD MD cha Hall, Patricia, RN RN Vilma Finley RN RN Dinora Angulo RN RN 3 Martha Rosen RN RN ha1 Corrections: (The following items were deleted from the chart) 19:59 17:23 Telemetry/MedSurg (observation) tatiana cg 19:59 17:23 tatiana cg 20:10 17:16 SARS-COV-2 Antigen Rapid+I.LAB.BRZ ordered. EDMS EDMS 23:13 19:59 [facility] ER HOLD cg cg 23:13 19:59 ERHOLD- cg cg
[2023-04-11 17:30] LABS: Albumin 3.8 g/dL (3.4-5.0); Bilirubin Direct 0.1 mg/dL (0-0.2); Bilirubin Indirect, Calculated 0.2 mg/dL (0.2-0.8); Bilirubin Total 0.3 mg/dL (0.2-1.0); Magnesium 2.4 mg/dL (1.6-2.4); Potassium 3.6 mEq/L (3.5-5.1); Protein, Total 7.3 g/dL (6.4-8.2); Thyroid Stimulating Hormone 1.01 uIU/mL (0.358-3.740); Troponin High Sensitivity 3.8 pg/mL (<58.9)
[2023-04-11] MEDS ORDERED: lisinopriL 10 MG TAB ONE (18:04)
[2023-04-11] MEDS ORDERED: METOPROLOL TAR 50 MG TAB ONE (18:04)
[2023-04-11] MEDS ORDERED: ENOXAPARIN 80 MG/0.8 ML SQ ONE (18:05)
[2023-04-11] MEDS ORDERED: METOPROLOL TARTRATE 5 MG/5 ML INJ IV ONE (18:05)
--- NOTE | 2023-04-11 18:14 | RAD REPORT ---
EXAM DESCRIPTION: CT - Angio Aorta For Dissection - 04/11/2023 5:58 pm CLINICAL HISTORY: . Chest and abd pain COMPARISON: November 2022 CT abdomen TECHNIQUE: Computed tomography angiography of the chest, abdomen pelvis were obtained. 150 cc Isovue 370 was administered intravenously. Coronal and sagittal reconstruction were performed. MIP 3D reconstruction was performed All CT scans are performed using dose optimization technique as appropriate and may include automated exposure control or mA/KV adjustment according to patient size. FINDINGS: An aortic dissection is not seen. An aortic aneurysm is not displayed. The celiac, SMA and MELLISSA are patent . A lung consolidation is not present. A pericardial effusion is not seen. A pleural effusion is not no gwendolyn. Hepatic cysts. Spleen, pancreas,adrenals and kidneys demonstrate no significant abnormality. 3.3 centimeter lobulated cystic mass left upper quadrant abuts diaphragm. It is without significant c hange. There no evidence diverticulitis. Cholelithiasis. No gallbladder wall thickening IMPRESSION: Negative for an aortic dissection. Cholelithiasis without evidence of cholecystitis 3.3 centimeter lobulated cystic mass left upper quadrant probably benign. Follow-up ultrasound in 3 m onths recommended to assess stability
[2023-04-11 18:37] LABS: Methadone ND (NEGATIVE)
[2023-04-11 18:43] LABS: Specific Gravity 1.021 (1.005-1.030)
[2023-04-11 18:45] LABS: Specific Gravity 1.021 (1.005-1.030); Urine Bacteria <20 /HPF (<20); Urine Bilirubin NEGATIVE (Negative); Urine Blood Trace (Negative); Urine Clarity Extremely Turbid (Clear); Urine Color Light-Yellow (Yellow); Urine Crystals Unidentified Few /HPF (None Seen); Urine Glucose NEGATIVE (Negative); Urine Mucus Slight /HPF (None Seen); Urine Protein NEGATIVE (Negative); Urine Urobilinogen Normal (Normal)
[2023-04-11 18:48] LABS: Barbiturates NEGATIVE (NEGATIVE); Benzodiazepines NEGATIVE (NEGATIVE); Cocaine NEGATIVE (NEGATIVE); METHAMPHETAM POSITIVE (NEGATIVE); Opiates NEGATIVE (NEGATIVE); Phencyclidine NEGATIVE (NEGATIVE); THC Cannibis NEGATIVE (NEGATIVE)
[2023-04-11] MEDS ORDERED: ACETAMINOPHEN 325 MG TABLET PO PRN (19:49)
[2023-04-11] MEDS ORDERED: ONDANSETRON 4 MG/2 ML VIAL IV PRN (19:49)
--- NOTE | 2023-04-11 19:50 | P.HP ---
Certification for Inpatient Patient admitted to: Observation With expected LOS: <2 Midnights Practitioner: I am a practitioner with admitting privileges, knowledge of patient current condition, hospital course, and medical plan of care. Services: Services provided to patient in accordance with Admission requirements found in Title 42 Section 412.3 of the Code of Federal Regulations Patient History Date of Service: 04/12/23 Reason for admission: Chest pain. History of Present Illness: 37-year-old female patient who has no significant medical history was evaluated for episode of chest pain. She reported chest pain that started couple of days ago but got worse in the last day. As per patient she had chest discomfort rated 2 out of 10 in intensity however this radiated into the left shoulder and down the left arm with some numbness prompting significant concerns. She has had to come to the ED because of these worrisome things and in the ED she had a UDS that was positive for amphetamine. She denied overt episode of nausea, vomiting, chills, cough. Initial troponin was within normal limit. She was asked to be admitted in observation for ACS work-up. Allergies No Known Allergies Allergy (Verified 09/21/13 05:46) Home Medications: Lisdexamfetamine Dimesylate [Vyvanse] 70 mg PO DAILY 04/12/23 Zolpidem Tartrate [Ambien Cr] 12.5 mg PO BEDTIME 04/12/23 - Past Medical/Surgical History Diabetic: No -: Section / 2009 -: Breast Augmentation/2008 - Family History Mother -: Hypertension, Cancer - Social History Alcohol use: No CD- Drugs: No Caffeine use: Yes Review of Systems General: Unremarkable Eyes: Unremarkable ENT: Unremarkable Respiratory: Unremarkable Cardiovascular: Chest Pain Gastrointestinal: Unremarkable Genitourinary: Unremarkable Musculoskeletal: Unremarkable Integumentary: Unremarkable Neurological: Unremarkable Physical Examination - Physical Exam General: Alert, Oriented x3 HEENT: Atraumatic, Normocephalic Neck: Supple Respiratory: Normal air movement Cardiovascular: Regular rate/rhythm, Normal S1 S2 Gastrointestinal: Soft and benign Musculoskeletal: No swelling Neurological: Normal speech, Normal strength at 5/5 x4 extr - Studies Laboratory Data (last 24 hrs) 04/11/23 04/11/23 04/11/23 16:49 16:49 16:49 WBC 6.50 Hgb 13.2 Hct 37.3 Plt Count 204 PT 10.5 INR 0.95 Sodium 139 Potassium 3.6 BUN 14 Creatinine 0.82 Glucose 88 Magnesium 2.4 Total Bilirubin 0.3 AST 17 ALT 26 Alkaline Phosphatase 46 Lipase 45 Assessment and Plan - Plan Chest pain: This is concerning for possible ACS. UDS is positive for amphetamine however she is on Lisdesamphetamine. We will monitor trend of troponin Q8. We will continue on aspirin therapy and obtain echocardiogram We will review lipid panel Positive UDS. Patient is on Lisdesamfetamine. We will follow clinical symptomatology. Prophylaxis: Lovenox for DVT prophylaxis CODE STATUS: Full code Disposition: Work-up for chest pain and discharge and when she is deemed clinically stable. Discharge Plan: Home - Advance Directives Does patient have a Living Will: No Does patient have a Durable POA for Healthcare: No
[2023-04-11] MEDS ORDERED: CEFTRIAXONE 1000 MG/VIAL ONE (20:13)
[2023-04-11] MEDS ORDERED: NA CHLORIDE 0.9% 50 ML ONE (20:13)
[2023-04-12 00:51] VITALS: BMI 28.5
[2023-04-12 01:17] VITALS: O2SAT 98
[2023-04-12] MEDS ORDERED: ENOXAPARIN 40 MG/0.4 ML SQ SCH (09:00)
[2023-04-12] MEDS ORDERED: ASPIRIN 81 MG CHEWABLE TABLET PO SCH (09:00)
[2023-04-12 12:24] VITALS: BP 138/88; TEMP 97.6
--- NOTE | 2023-04-12 12:32 | P.DS ---
Admission Date: 04/11/23 Discharge Date: 04/12/23 Disposition: ROUTINE DISCHARGE Discharge Condition: GOOD Reason for Admission: Chest pain. Consultations: Cardiology - Dr. Nichols Brief History of Present Illness: 37yo F, PMH: no significant medical history Patient presented to the ED with chest pain. She reported chest pain that started couple of days ago but got worse in the last day. As per patient she had chest discomfort rated 2 out of 10 in intensity however this radiated into the left shoulder and down the left arm with some numbness prompting significant concerns. She has had to come to the ED because of these worrisome things and in the ED she had a UDS that was positive for amphetamine. She denied overt episode of nausea, vomiting, chills, cough. Initial troponin was within normal limit. She was asked to be admitted in observation for ACS work-up. Hospital Course: Problem List: Chest pain Patient presented with chest pain radiating to left shoulder/arm. Troponins were negative. BNP normal. EKG, CXR negative for any acute findings. Cardiology was consulted, Dr. Nichols recommended no further cardiac workup in the hospital and given the negative workup, overall risk for a cardiac event is low and is stable for discharge home She was monitored on telemetry and noted to have a few, occasional PVCs. Follow up in the office with Dr. Nichols for outpatient stress testing and review echocardiogram. No change in medications. Discussed avoiding energy drinks / minimizing caffeine intake while taking vyvan se. Follow up: PCP 3-5 days Cardiology 1-2 weeks [address]: 3.3 centimeter lobulated cystic mass left upper quadrant abutting the diaphragm most likely benign. Similar appearance/size to prior CT (12/02/22). Recommend to follow with PCP for further discussion and to consider follow up ultrasound in ~3 months for further monitoring. Physical Exam: GEN: Alert, oriented, NAD HEENT: Normal conjunctiva, sclera anicteric CV: Regular rate and rhythm, no edema Pulm: Nonlabored respirations on room air ABD: Soft, nontender, nondistended Neuro: Normal speech, normal affect Vital Signs/Physical Exam: Temp Pulse Resp BP Pulse Ox 97.6 F 74 16 138/88 99 04/12/23 12:00 04/12/23 12:00 04/12/23 12:00 04/12/23 12:00 04/12/23 12:00 Laboratory Data at Discharge: WBC 6.50 thou/uL (4.3-10.9) 04/11/23 16:49 Hgb 13.2 g/dL (12.0-15.0) 04/11/23 16:49 Hct 37.3 % (36.0-45.0) 04/11/23 16:49 Plt Count 204 thou/uL (152-406) 04/11/23 16:49 PT 10.5 SECONDS (9.5-12.5) 04/11/23 16:49 INR 0.95 04/11/23 16:49 Sodium 139 mEq/L (136-145) 04/11/23 16:49 Potassium 3.6 mEq/L (3.5-5.1) 04/11/23 16:49 BUN 14 mg/dL (7-18) 04/11/23 16:49 Creatinine 0.82 mg/dL (0.55-1.02) 04/11/23 16:49 Glucose 88 mg/dL (74-106) 04/11/23 16:49 Magnesium 2.4 mg/dL (1.6-2.4) 04/11/23 16:49 Total Bilirubin 0.3 mg/dL (0.2-1.0) 04/11/23 16:49 AST 17 U/L (15-37) 04/11/23 16:49 ALT 26 U/L (13-56) 04/11/23 16:49 Alkaline Phosphatase 46 U/L (45-117) 04/11/23 16:49 Triglycerides 87 mg/dL (<150) 04/12/23 03:24 Cholesterol 120 mg/dL (<200) 04/12/23 03:24 HDL Cholesterol 33 mg/dL (40-60) L 04/12/23 03:24 Cholesterol/HDL Ratio 3.64 04/12/23 03:24 Lipase 45 U/L (13-75) 04/11/23 16:49 Home Medications: Lisdexamfetamine Dimesylate [Vyvanse] 70 mg PO DAILY 04/12/23 Zolpidem Tartrate [Ambien Cr] 12.5 mg PO BEDTIME 04/12/23 Physician Discharge Instructions: PROBLEM: Chest Pain GOAL: Clear understanding of disease process INSTRUCTIONS: Patient presented with chest pain radiating to left shoulder/arm. Troponins were negative. BNP normal. EKG, CXR negative for any acute findings. Cardiology was consulted, Dr. Nichols recommended no further cardiac workup in the hospital and given the negative workup, overall risk for a cardiac event is low and is stable for discharge home She was monitored on telemetry and noted to have a few, occasional PVCs. Follow up in the office with Dr. Nichols for outpatient stress testing and review echocardiogram. No change in medications. Discussed avoiding energy drinks / minimizing caffeine intake while taking vyvanse. Follow up: PCP 3-5 days Cardiology 1-[address] weeks [address]: 3.3 centimeter lobulated cystic mass left upper quadrant abutting the diaphragm most likely benign. Similar appearance/size to prior CT (12/02/22). Recommend to follow with PCP for further discussion and to consider follow up ultrasound in ~3 months for further monitoring. If symptoms worsen, please go to the ER. If you have any questions regarding hospital stay, feel free to call . Diet: Regular Activity: As Tolerated DME DME: Date Ordered: Name of Company: [employer] Services Needed: None Name of Company: Date or Referral: IMMUNIZATION Influenza Vaccine Indicated: No Influenza Vaccine Given: Date Given: Pneumonia Vaccine Indicated: No Pneumonia Vaccine Given: Date Given: Followup: NONE,NONE [Primary Care Provider] - Time spent managing pt's care (in minutes): 45
--- NOTE | 2023-04-12 15:46 | EKG ---
Test Date: 2023-04-11 Test Time: 16:18:22 Supervisor Billposting: PH MEASUREMENT RESULTS: Intervals: Rate: 83 ND: 142 QRSD: 70 QT: 356 QTc: 418 [place]: P: 71 ND: 142 QRS: -7 T: 53 INTERPRETIVE STATEMENTS: Normal sinus rhythm Low voltage QRS Cannot rule out Anterior infarct, age undetermined Abnormal ECG No previous ECG available for comparison Electronically Signed On 04-12-23 15:42:39 CDT by Brain Nichols
--- NOTE | 2023-04-12 18:10 | CON ---
Date of Consultation: 04/12/2023 Reason For Consultation: Chest pain. History Of Present Illness: 37-year-old female, no past medical history, presented with chest pain. It felt like sharp and tightness at that time, on and off, lasts for short periods of time and then goes away. No shortness of breath. No diaphoresis. No exertional chest pain and she has been monit ored overnight and cardiac enzymes have been negative. Past Medical History: None. Medications: None. Allergies: NO KNOWN DRUG ALLERGIES. Family History: No premature coronary artery disease or cancer. Social History: She does not smoke or drink. Does not use any drugs. Review of Systems: All systems reviewed and they were negative except as mentioned in the HPI. Physical Examination: Vital Signs: Reviewed. Head and Neck: Pupils are equal, reactive to light. Intact eye movements. No JVD. No cervical lym phadenopathy. Neck is supple. Thyroid is not enlarged. Lungs: Clear to auscultation bilaterally. No rhonchi, wheezing, or crackles. No accessory muscle u se. Heart: Regular rate and rhythm. No extra sounds. Abdomen: Soft, nontender. Bowel sounds positive. No organomegaly. No masses or hernia. No rigidi ty or rebound. Extremities: No edema clubbing, or cyanosis. Intact pulses. Skin: No rash or nodule. Neurologic: Alert, awake, oriented x3. No acute focal deficits appreciated. Investigation: Labs were reviewed. Assessment And Recommendations: Chest pain, atypical with cardiac enzymes being negative. Patient c an be released. Follow up with me as an outpatient. We will plan for an exercise stress test on an outpatient basis as well as an echo. Thank you for the consult. /HAKEEM Voice ID: [id number] Report ID: [id number]
--- NOTE | 2023-04-15 09:50 | ECHO ---
HEIGHT: 5 ft 8 in WEIGHT: 187 lb 8 oz DATE OF STUDY: 04/12/[address]: Bebeto Markham MD 2-DIMENSIONAL: YES M.MODE: YES DOPPLER: YES COLOR FLOW: YES TDS: NO PORTABLE: YES DEFINITY: NO BUBBLE STUDY: NO DIAGNOSIS: CHEST PAIN CARDIAC HISTORY: CATHERIZATION: SURGERY: PROSTHETIC VALVE: PACEMAKER: MEASUREMENTS (cm) DIASTOLIC (NORMALS) SYSTOLIC (NORMALS) IVSd 1.1 (0.6-1.2) LA Diam 3.1 (1.9-4.0) LVEF 70% LVIDd 3.8 (3.5-5.7) LVIDs 2.3 (2.0-3.5) %FS 39% LVPWd 1.2 (0.6-1.2) Ao Diam 2.7 (2.0-3.7) 2 DIMENSIONAL ASSESSMENT: RIGHT ATRIUM: NORMAL LEFT ATRIUM: NORMAL RIGHT VENTRICLE: NORMAL LEFT VENTRICLE: LEFT VENTRICULAR HYPERTROPHY TRICUSPID VALVE: MILD TRICUSPID REGURGITATION MITRAL VALVE: MILD MITRAL REGURGITATION PULMONIC VALVE: NORMAL AORTIC VALVE: NORMAL PERICARDIAL EFFUSION: NONE AORTIC ROOT: NORMAL LEFT VENTRICULAR WALL MOTION: NORMAL DOPPLER/COLOR FLOW: SEE BELOW COMMENTS: 1. NORMAL LEFT VENRICULAR EJECTION FRACTION 55-60% WITH NORMAL WALL MOTION. 2. MILD CONCENTRIC LEFT VENTRICULAR HYPERTROPHY. 3. MILD TRICUSPID REGURGITATION. 4. MILD MITRAL REGURGITATION. 5. NORMAL DIASTOLIC FUNCITON. TECHNOLOGIST: Sonny ZIMMERMAN
== END 2023-04-12 13:40 | disposition home or self-care (01) ==
LOC: ER 16:00 → ERHOLD 19:50 → 2ND 23:39
PROVIDERS: ADMIT Internal Medicine Nephrology; ATTEND Hospitalist
DX: R07.89 Other chest pain (principal); R22.2 Localized swelling, mass and lump, trunk; I10 Essential (primary) hypertension; R00.2 Palpitations; N39.0 Urinary tract infection, site not specified; R06.00 Dyspnea, unspecified; Z20.822 Contact with and (suspected) exposure to COVID-19
CPT/HCPCS: 96365; 93005; 93306; 87088; 85025; 81001; 87086; 80048; 36415; 83735; 81025; 85610; 80061; 80076; 84443; 84484 ×4; 83690; 83880; 87635; 80307; 87804 ×2; 71275; 74175; 71045; 96375; 96372; 99285; Q9967; J1650; J7040; J0696; G0378 ×3

== ENCOUNTER 2023-06-14 06:44 | Day surgery (SDC) | payer BC ==
[2023-06-12 15:00] LABS: Hematocrit 38.2 % (36.0-45.0); Lymphocytes % 28.3 % (15.3-44.8); MCV 92.2 fL (80-100); MPV 8.9 fL (7.6-11.3); Platelets 196 thou/uL (152-406); RBC Red Blood Cell Count 4.14 M/uL (3.86-4.86)
[2023-06-12 15:11] LABS: Protime INR 1.01
[2023-06-12 15:22] LABS: Potassium 3.9 mEq/L (3.5-5.1)
--- NOTE | 2023-06-13 13:22 | EKG ---
Test Date: 2023-06-12 Test Time: 15:43:08 [employer]: MARTA MEASUREMENT RESULTS: Intervals: Rate: 81 MT: 138 QRSD: 68 QT: 360 QTc: 418 [place]: P: 77 MT: 138 QRS: -9 T: 71 INTERPRETIVE STATEMENTS: Normal sinus rhythm Low voltage QRS Cannot rule out Anterior infarct, age undetermined Abnormal ECG Compared to ECG 04/11/2023 16:18:22 No significant changes Electronically Signed On 06-13-23 13:19:00 OPERATIONS VICE PRESIDENT by Brain Nichols
[2023-06-14] MEDS ORDERED: LIDOCAINE 1% 20 ML MDV ONE (06:52)
[2023-06-14] MEDS ORDERED: HEPA 1000U/500MLS 2,000 UNIT/1,000 ML BAG IV ONE (06:52)
[2023-06-14] MEDS ORDERED: VERAPAMIL HCL 10 MG/4 ML VIAL IV ONE (06:52)
[2023-06-14] MEDS ORDERED: FENTANYL CITR 100 MCG/2 ML ONE (06:53)
[2023-06-14] MEDS ORDERED: TICAGRELOR 90 MG TABLET PO ONE (06:54)
[2023-06-14] MEDS ORDERED: HEPARIN 5000 UNIT/ML 1 ML VIAL ONE (06:54)
[2023-06-14] MEDS ORDERED: MIDAZOLAM HCL 2 MG/2 ML INJ ONE (06:54)
[2023-06-14] MEDS ORDERED: CLOPIDOGREL 75 MG TABLET ONE (06:55)
[2023-06-14] MEDS ORDERED: HEPARIN 10,000 UNIT/10 ML VIAL IV ONE (06:55)
[2023-06-14] MEDS ORDERED: ASPIRIN 325 MG TAB ONE (06:56)
[2023-06-14] MEDS ORDERED: NA CHLORIDE 0.9% 500 ML ONE (07:23)
[2023-06-14 07:42] VITALS: TEMP 97.5
--- NOTE | 2023-06-14 08:44 | OP ---
Date of Procedure: 06/14/2023 Surgeon: DANIKA JOSEPH Procedures Performed: 1.Selective coronary angiogram. 2.Left heart catheterization. Indication: Unstable angina. Access: Right radial artery, 6-Serbian, closed with TR band. Complications: None. Bleeding: Less than 20 mL. Total Sedation Time: 30 minutes. Description Of Procedure: After risks, benefits, and alternatives were explained, the patient agreed to procedure and signed informed consent. The patient was brought into the cardiac catheterization laboratory, prepped and draped in usual sterile fashion. Then, I accessed right radial artery using pediatric micropuncture kit. Placed a 6-Serbian Slender sheath and took 5-Serbian [place] 4.0 catheter i nto the aortic root over a J-wire and across the aortic valve and measured the LVEDP. Pullback did n ot record any gradient. Then, engaged left main, took standard views and then engaged RCA, took jennifer dard views and then removed the catheter and the sheath, and placed TR band with good hemostasis. Findings: 1.Left main: Large and normal. 2.LAD: Large and normal. 3.Left circumflex: Large and dominant, and normal. 4.RCA: Moderate size, nondominant and normal. 5.Normal LVEDP at 10 mmHg. Conclusion: 1.Normal coronary arteries. 2.Normal LVEDP. Recommendation: Medical management and search for other causes of chest pain. SR/MODL Voice ID: [id number] Report ID: [id number]
[2023-06-14 09:03] VITALS: O2SAT 100
[2023-06-14 10:13] VITALS: BP 132/93
== END 2023-06-14 10:13 | disposition home or self-care (01) ==
LOC: CCL 06:44
PROVIDERS: ATTEND Internal Medicine
DX: I20.0 Unstable angina (principal); I34.0 Nonrheumatic mitral (valve) insufficiency; I51.7 Cardiomegaly; I10 Essential (primary) hypertension; Z79.899 Other long term (current) drug therapy
CPT/HCPCS: 93005; 85025; 80048; 36415; 83721; 85610; 85730; 93458; 76937; C1893; Q9966; J1644; J2001; J2250; J3010; J7040; 99152; 99153